=== PATIENT | female | born 1965 | race Caucasian/White ===

== ENCOUNTER 2024-10-26 06:28 | Day surgery (SDC) | payer OTHER ==
[2024-10-26] MEDS ORDERED: Propofol 200 MG/20 ML SDV ONE (06:56)
[2024-10-26] MEDS ORDERED: Midazolam 1 MG/ML 2 ML SDV ONE (06:56)
[2024-10-26] MEDS ORDERED: fentaNYL 50 MCG/ML SDV ONE (06:56)
[2024-10-26] MEDS: Lactated Ringers 1,000 ML IV SCH (07:07)
== END 2024-10-26 11:05 | disposition home or self-care (01) ==
LOC: JP.SDS 06:28
PROVIDERS: ATTEND Surgery
DX: Z12.11 Encounter for screening for malignant neoplasm of colon (principal)
CPT/HCPCS: 00812-QZ; J2250; J2704; J3010; J7120